=== PATIENT | female | born 1995 | race Two or more races ===

== ENCOUNTER 2017-05-05 13:39 | Emergency (ER) | payer SELFPAY ==
[~2017-05-05] VITALS: Ht 170.2 cm; Wt 63.5 kg
[2017-05-05 14:17] VITALS: BP 116/57
[2017-05-05 15:31] LABS: BILIRUBIN,URINE NEGATIVE (NEG); GLUCOSE,URINE NEGATIVE (NEG); NITRITE,URINE NEGATIVE (NEG); PROTEIN,URINE NEGATIVE (NEG-TRACE); UROBILINOGEN,URINE 0.2 mg/dL (0.2 mg/dL)
[2017-05-05 15:47] LABS: BACTERIA,URINE MOD /HPF (0-FEW); RBC,URINE 0 /HPF (0-2); SQUAMOUS EPITHELIAL CELL,UR MANY /LPF; WBC,URINE 20-40 /HPF (0-4)
[2017-05-05] MEDS ORDERED: CEPH500T PO (15:55)
[2017-05-05] MEDS ORDERED: IBUP-1060 PO (15:55)
--- NOTE | 2017-05-05 15:56 | PHYS DOC ---
Past Medical History Past Medical History: No Pertinent History Past Surgical History: No Surgical History Alcohol Use: None Drug Use: None Adult General Chief Complaint Chief Complaint: PAIN ON URINATION HPI HPI Patient is a 22 year old female who presents with dysuria for 2 days. Patient denies any fever. Denies any hematuria. Denies any chance she is . She is also complaining of mild right anterior knee pain that began a week ago when she was joking. She is refusing to be evaluated for this. She states she believes the knee is sprained. Informed her I will give her an orthopedic doctor to follow up with as needed. Review of Systems Review of Systems Constitutional: Denies fever or chills [] GI: Denies abdominal pain, nausea, vomiting, bloody stools or diarrhea [] : Dysuria for 2 days Musculoskeletal: Right knee pain Integument: Denies rash or skin lesions [] Neurologic: Denies headache, focal weakness or sensory changes [] Allergies Allergies Allergies Coded Allergies Type Severity Reaction Last Updated Verified No Known Drug Allergies 05/05/17 No Physical Exam Physical Exam Constitutional: Well developed, well nourished, no acute distress, non-toxic appearance. [] Abdomen: Bowel sounds normal, soft, no tenderness, no masses, no pulsatile masses. [] Skin: Warm, dry, no erythema, no rash. [] Back: No tenderness, no CVA tenderness. [] Extremities: No tenderness, no cyanosis, no clubbing, ROM intact, no edema. [] Neurologic: Alert and oriented X 3, normal motor function, normal sensory function, no focal deficits noted. [] Psychologic: Affect normal, judgement normal, mood normal. [] Current Patient Data Vital Signs Vital Signs Date Time Temp Pulse Resp B/P (MAP) Pulse Ox O2 Delivery O2 Flow Rate FiO2 05/05/17 14:17 98.1 67 16 100 Room Air 98.1 Lab Values Laboratory Tests Test 05/05/17 14:15 05/05/17 14:21 Urine Collection Type Unknown Urine Color Yellow Urine Clarity Hazy Urine pH 6.0 Urine Specific [place] >=1.030 Urine Protein Negative mg/dL (NEG-TRACE) Urine Glucose (UA) Negative mg/dL (NEG) Urine Ketones (Stick) Negative mg/dL (NEG) Urine Blood Negative (NEG) Urine Nitrite Negative (NEG) Urine Bilirubin Negative (NEG) Urine Urobilinogen Dipstick 0.2 mg/dL (0.2 mg/dL) Urine Leukocyte Esterase Moderate (NEG) Urine RBC 0 /HPF (0-2) Urine WBC 20-40 /HPF (0-4) Urine Squamous Epithelial Cells Many /LPF Urine Bacteria Mod /HPF (0-FEW) Urine Mucus Marked /LPF POC Urine HCG, Qualitative Hcg negative (Negative) EKG EKG [] Radiology/Procedures Radiology/Procedures [] Course & Med Decision Making Course & Med Decision Making Pertinent Labs and Imaging studies reviewed. (See chart for details) Patient is in the ED with dysuria. Urine analysis shows she has a UTI. She'll be discharged with cephalexin. She is also complaining of right knee pain but refused to be examined for this. I provided an orthopedic doctor to follow-up with. Lizbeth Disclaimer Lizbeth Disclaimer This electronic medical record was generated, in whole or in part, using a voice recognition dictation system. Departure Departure Impression: Primary Impression: Urinary tract infection Disposition: HOME, SELF-CARE Condition: STABLE Referrals: NO PCP (PCP) EULALIO LEY MD follow up in one week for knee pain Patient Instructions: Urinary Tract Infection Additional Instructions: You were seen with the urinary tract infection. Ensure you complete your antibiotics. Push fluids. Follow-up with your doctor in 1-2 weeks. Take ibuprofen as needed for pain or fever. You can also take Tylenol. Scripts Cephalexin (CEPHALEXIN) 500 Mg Tablet 1 TAB PO BID, #14 TAB Prov: LORE URIOSTEGUI APRN 05/05/17 Ibuprofen (IBUPROFEN) 800 Mg Tablet 800 MG PO PRN Q6HRS Y for INFLAMMATION, #30 TAB Prov: LORE URIOSTEGUI APRN 05/05/17 Problem Qualifiers Primary Impression: Urinary tract infection Urinary tract infection type: site unspecified Hematuria presence: without hematuria Qualified Codes: N39.0 - Urinary tract infection, site not specified LORE URIOSTEGUI APRN May 05, 2017 15:56
== END 2017-05-05 16:00 | disposition home or self-care (01) ==
LOC: ER 13:39
DX: N39.0 Urinary tract infection, site not specified (principal); M25.561 Pain in right knee
CPT/HCPCS: 81001; 81025; 99283

== ENCOUNTER 2018-05-07 13:38 | Emergency (ER) | payer SELFPAY ==
[~2018-05-07] VITALS: Ht 350.5 cm; Wt 62.1 kg
[~2018-05-07 13:38] MED LIST: CEPH500T PO; IBUP-1060 PO
[2018-05-07 13:40] VITALS: BP 114/67
[2018-05-07 13:53] LABS: BILIRUBIN,URINE NEGATIVE (NEG); CLARITY,URINE CLEAR; COLOR,URINE YELLOW; NITRITE,URINE NEGATIVE (NEG); PROTEIN,URINE NEGATIVE (NEG-TRACE)
[2018-05-07 14:02] LABS: BACTERIA,URINE 0 /HPF (0-FEW); SQUAMOUS EPITHELIAL CELL,UR MANY /LPF
--- NOTE | 2018-05-07 14:05 | PHYS DOC ---
Past Medical History Past Medical History: No Pertinent History Past Surgical History: No Surgical History Alcohol Use: None Drug Use: None Adult General Chief Complaint Chief Complaint: ABDOMINAL PAIN HPI HPI Patient is a 23 year old female presents to the ED complaining of abdominal pain x 1 day. States she is with her LMP April 01. Complains of lower abdominal cramping. Rates the pain as 4 out of 10. States similar symptoms in the past. Denies STD exposure, dysuria, hematuria, nausea, vomiting, weakness, dizziness, headache, chest pain, shortness of breath, fever or headache. Review of Systems Review of Systems Constitutional: Denies fever or chills [] Eyes: Denies change in visual acuity, redness, or eye pain [] HENT: Denies nasal congestion or sore throat [] Respiratory: Denies cough or shortness of breath [] Cardiovascular: No additional information not addressed in HPI [] GI: Complains of abdominal pain. Denies vomiting, bloody stools or diarrhea [] : Denies dysuria or hematuria [] Musculoskeletal: Denies back pain or joint pain [] Integument: Denies rash or skin lesions [] Neurologic: Denies headache, focal weakness or sensory changes [] All other systems were reviewed and found to be within normal limits, except as documented in this note. Current Medications Current Medications Current Medications Medications (Trade) Dose Ordered Sig/Loida Start Time Stop Time Status Last Admin Dose Admin Potassium Chloride (Klor-Con) 40 meq 1X ONCE 05/07/18 16:15 05/07/18 16:16 DC 05/07/18 16:23 40 MEQ Allergies Allergies Allergies Coded Allergies Type Severity Reaction Last Updated Verified No Known Drug Allergies 05/05/17 No Physical Exam Physical Exam Constitutional: Well developed, well nourished, no acute distress, non-toxic appearance. [] HENT: Normocephalic, atraumatic Neck: Normal range of motion, no tenderness, supple, no stridor. [] Cardiovascular:Heart rate regular rhythm, no murmur [] Lungs & Thorax: Bilateral breath sounds clear to auscultation [] Abdomen: Bowel sounds normal, soft, no tenderness, no masses, no pulsatile masses. [] : Refused Skin: Warm, dry, no erythema, no rash. [] Back: No tenderness, no CVA tenderness. [] Extremities: No tenderness, no cyanosis, no clubbing, ROM intact, no edema. [] Neurologic: Alert and oriented X 3, normal motor function, normal sensory function, no focal deficits noted. [] Psychologic: Affect normal, judgement normal, mood normal. [] Current Patient Data Vital Signs Vital Signs Date Time Temp Pulse Resp B/P (MAP) Pulse Ox O2 Delivery O2 Flow Rate FiO2 05/07/18 13:40 98.2 78 16 114/67 (83) 100 Room Air 98.2 Lab Values Laboratory Tests Test 05/07/18 13:43 05/07/18 13:47 05/07/18 14:49 Urine Collection Type Unknown Urine Color Yellow Urine Clarity Clear Urine pH 7.0 Urine Specific [place] 1.025 Urine Protein Negative mg/dL (NEG-TRACE) Urine Glucose (UA) Negative mg/dL (NEG) Urine Ketones (Stick) Negative mg/dL (NEG) Urine Blood Negative (NEG) Urine Nitrite Negative (NEG) Urine Bilirubin Negative (NEG) Urine Urobilinogen Dipstick 1.0 mg/dL (0.2 mg/dL) Urine Leukocyte Esterase Negative (NEG) Urine RBC 3-5 /HPF (0-2) Urine WBC 5-10 /HPF (0-4) Urine Squamous Epithelial Cells Many /LPF Urine Bacteria 0 /HPF (0-FEW) Urine Mucus Marked /LPF POC Urine HCG, Qualitative Hcg positive (Negative) White Blood Count 8.9 x10^3/uL (4.0-11.0) Red Blood Count 4.14 x10^6/uL (3.50-5.40) Hemoglobin 12.8 g/dL (12.0-15.5) Hematocrit 36.8 % (36.0-47.0) Mean Corpuscular Volume 89 fL (79-100) Mean Corpuscular Hemoglobin 31 pg (25-35) Mean Corpuscular Hemoglobin Concent 35 g/dL (31-37) Red Cell Distribution Width 12.9 % (11.5-14.5) Platelet Count 238 x10^3/uL (140-400) Neutrophils (%) (Auto) 68 % (31-73) Lymphocytes (%) (Auto) 25 % (24-48) Monocytes (%) (Auto) 6 % (0-9) Eosinophils (%) (Auto) 1 % (0-3) Basophils (%) (Auto) 0 % (0-3) Neutrophils # (Auto) 6.0 x10^3uL (1.8-7.7) Lymphocytes # (Auto) 2.2 x10^3/uL (1.0-4.8) Monocytes # (Auto) 0.5 x10^3/uL (0.0-1.1) Eosinophils # (Auto) 0.1 x10^3/uL (0.0-0.7) Basophils # (Auto) 0.0 x10^3/uL (0.0-0.2) Maternal Serum HCG Beta Subunit 755 mIU/mL (0-5) H Sodium Level 138 mmol/L (136-145) Potassium Level 3.4 mmol/L (3.5-5.1) L Chloride Level 104 mmol/L (98-107) Carbon Dioxide Level 27 mmol/L (21-32) Anion Gap 7 (6-14) Blood Urea Nitrogen 8 mg/dL (7-20) Creatinine 0.6 mg/dL (0.6-1.0) Estimated GFR (Cockcroft-Gault) 121.8 BUN/Creatinine Ratio 13 (6-20) Glucose Level 109 mg/dL (70-99) H Calcium Level 8.6 mg/dL (8.5-10.1) Total Bilirubin 0.4 mg/dL (0.2-1.0) Aspartate Amino Transferase (AST) 16 U/L (15-37) Alanine Aminotransferase (ALT) 21 U/L (14-59) Alkaline Phosphatase 43 U/L (46-116) L Total Protein 6.7 g/dL (6.4-8.2) Albumin 3.4 g/dL (3.4-5.0) Albumin/Globulin Ratio 1.0 (1.0-1.7) Laboratory Tests 05/07/18 14:49 Laboratory Tests 05/07/18 14:49 EKG EKG [] Radiology/Procedures Radiology/Procedures PROCEDURE: OB <14 WKS W/TV Early OB ultrasound History: Abdominal pain in . Comparison: None this . Technique: Transabdominal imaging was performed for initial evaluation of the pelvis. Endovaginal imaging was performed to evaluate optimally the lower uterine segment and to increase sensitivity for detection of intrauterine . Findings: Transabdominal imaging: Uterus measures 9.2 cm in length. No intrauterine is identified. No uterine masses are seen. Left ovary measures 2.3 x 1.8 x 1.3 cm and is unremarkable. Right ovary measures 3.7 x 2.4 x 2.6 cm and is unremarkable. No adnexal masses are seen. Both ovaries demonstrate normal vascular flow upon Doppler interrogation and are without evidence of torsion. Endovaginal imaging: Endometrial thickness is 11 mm. No intrauterine is identified. No uterine masses are seen. Bilateral ovaries have unremarkable appearance. Impression: 1. No intrauterine is identified. No adnexal masses are seen. Assuming positive test, statistically most likely etiology is exceedingly early intrauterine . As no intrauterine is identified, ectopic cannot be excluded, although there is no positive ultrasound evidence of such. 2. Recommend serial beta hCG levels and pelvic ultrasound as clinically indicated. [] Course & Med Decision Making Course & Med Decision Making Pertinent Labs and Imaging studies reviewed. (See chart for details) []Discussed lab and imaging findings with patient. Patient most likely having early . On reexamination, abdomen is soft nontender nondistended. No peritoneal signs. Tolerating by mouth. Patient is O+. Patient has had no active bleeding or vaginal discharge. Refused exam. Discussed follow-up with [facility] in 3-5 days for repeat ultrasound and beta hCG monitoring. Provided contact information/education. Discussed reasons to return to the ED. Patient understands and agrees with plan. Dragon Disclaimer Dragon Disclaimer This electronic medical record was generated, in whole or in part, using a voice recognition dictation system. Departure Departure Impression: Primary Impression: Abdominal pain during Disposition: HOME, SELF-CARE Condition: IMPROVED Referrals: NO PCP (PCP) POONAM CORDERO MD Patient Instructions: Abdominal Pain During BOBO BARROS May 07, 2018 14:05
[2018-05-07 15:03] LABS: BASO % 0 % (0-3); EOS # 0.1 x10^3/uL (0.0-0.7); EOS % 1 % (0-3); HEMATOCRIT 36.8 % (36.0-47.0); HEMOGLOBIN 12.8 g/dL (12.0-15.5); LYMPH # 2.2 x10^3/uL (1.0-4.8); LYMPH % 25 % (24-48); MEAN CORPUSCULAR HEMOGLOBIN 31 pg (25-35); MEAN CORPUSCULAR HGB CONC 35 g/dL (31-37); MEAN CORPUSCULAR VOLUME 89 fL (79-100); MONO # 0.5 x10^3/uL (0.0-1.1); MONO % 6 % (0-9); NEUT % 68 % (31-73); PLATELET COUNT 238 x10^3/uL (140-400); RED BLOOD COUNT 4.14 x10^6/uL (3.50-5.40); RED CELL DISTRIBUTION WIDTH 12.9 % (11.5-14.5); WHITE BLOOD COUNT 8.9 x10^3/uL (4.0-11.0)
[2018-05-07 15:13] LABS: CALCIUM 8.6 mg/dL (8.5-10.1); CREATININE 0.6 mg/dL (0.6-1.0); GFR 121.8; POTASSIUM 3.4 mmol/L (3.5-5.1)
[2018-05-07 15:17] LABS: ALBUMIN 3.4 g/dL (3.4-5.0); TOTAL BILIRUBIN 0.4 mg/dL (0.2-1.0); TOTAL PROTEIN 6.7 g/dL (6.4-8.2)
--- NOTE | 2018-05-07 15:55 | RAD ---
Early OB ultrasound History: Abdominal pain in . Comparison: None this . Technique: Transabdominal imaging was performed for initial evaluation of the pelvis. Endovaginal imaging was performed to evaluate optimally the lower uterine segment and to increase sensitivity for detection of intrauterine . Findings: Transabdominal imaging: Uterus measures 9.2 cm in length. No intrauterine is identified. No uterine masses are seen. Left ovary measures 2.3 x 1.8 x 1.3 cm and is unremarkable. Right ovary measures 3.7 x 2.4 x 2.6 cm and is unremarkable. No adnexal masses are seen. Both ovaries demonstrate normal vascular flow upon Doppler interrogation and are without evidence of torsion. Endovaginal imaging: Endometrial thickness is 11 mm. No intrauterine is identified. No uterine masses are seen. Bilateral ovaries have unremarkable appearance. Impression: 1. No intrauterine is identified. No adnexal masses are seen. Assuming positive test, statistically most likely etiology is exceedingly early intrauterine . As no intrauterine is identified, ectopic cannot be excluded, although there is no positive ultrasound evidence of such. 2. Recommend serial beta hCG levels and pelvic ultrasound as clinically indicated. Electronically signed by: Gerardo Weaver MD (05/07/2018 3:50 PM) [place] [id number]
[2018-05-07] MEDS: POTASSIUM CHLORIDE 20 MEQ TABLET.ER. PO ONE (16:23)
== END 2018-05-07 16:22 | disposition home or self-care (01) ==
LOC: ER 13:38
DX: O26.891 Other specified pregnancy related conditions, first trimester (principal); R10.9 Unspecified abdominal pain; Z3A.00 Weeks of gestation of pregnancy not specified
CPT/HCPCS: 36415; 76801; 76817; 80053; 81001; 81025; 84702; 85025; 86900; 86901; 99285